=== PATIENT | female | born 1985 | race Caucasian/White ===

== ENCOUNTER → 2016-12-25 | Outpatient (CLI) | payer OTHER ==
[~2016-12-25] MED LIST: ACET-1311 PO; DULO60CA44 PO; GABA-112 PO; [UNRECOGNIZED DRUG - OTHER] PO; compound cream
== END | disposition home or self-care (01) ==
LOC: C.LABSPEC 17:05
PROVIDERS: ATTEND Nurse Practitioner Adult Health
DX: R31.29 Other microscopic hematuria (principal); N39.0 Urinary tract infection, site not specified

== ENCOUNTER 2017-09-03 15:09 | Inpatient (IN) | payer OTHER ==
[~2017-09-03] VITALS: Ht 165.1 cm; Wt 50.8 kg
[2017-09-03 15:56] LABS: BASO % 0.1 %; BASO ABS # 0.02 K/uL (0-0.2); EOS ABS # 0.16 K/uL (0-0.5); HEMATOCRIT 45.7 % (37-47); IG# 0.05 K/uL (0.00-0.02); LYMPH % 15.7 %; LYMPH ABS # 2.64 K/uL (1.2-3.4); MEAN CORPUSCULAR HEMOGLOBIN 31.5 pg (25-34); MEAN PLATELET VOLUME 8.6 fL (7.4-10.4); MONO ABS # 1.35 K/uL (0.11-0.59); NEUT % 74.9 %; NEUT ABS # 12.61 K/uL (1.4-6.5); PLATELET COUNT 219 K/uL (130-400); RED CELL DISTRIBUTION WIDTH CV 13.3 % (11.5-14.5); RED CELL DISTRIBUTION WIDTH SD 44.4 fL (36.4-46.3); WHITE BLOOD COUNT 16.83 K/uL (4.8-10.8)
[2017-09-03 16:17] LABS: ALBUMIN 4.3 gm/dl (3.4-5.0); CALCIUM 9.1 mg/dl (8.5-10.1); CREATININE 0.91 mg/dl (0.60-1.20); POTASSIUM 4.2 mmol/L (3.5-5.1)
[2017-09-03 16:20] LABS: TOTAL PROTEIN 7.6 gm/dl (6.4-8.2)
[2017-09-03] MEDS ORDERED: SODIUM CHLORIDE 0.9% 1000ML 1,000 ML IV STA (18:38)
[2017-09-03] MEDS ORDERED: MoRPHine SULFATE 4 MG/ML 1 ML CARP\\VIAL IV STA (18:38)
[2017-09-03] MEDS ORDERED: ONDANSETRON INJ 2 MG/ML 2 ML VIAL IV STA (18:38)
[2017-09-03] MEDS ORDERED: KETOROLAC TROMETHAMINE 30 MG/ML VIAL IV STA (18:38)
[2017-09-03] MEDS ORDERED: NRN800 PO (18:54)
[2017-09-03] MEDS ORDERED: VALA1TAB31 PO (18:54)
[2017-09-03] MEDS ORDERED: AMT25 PO (18:54)
[2017-09-03] MEDS ORDERED: BUPR100T5 PO (18:54)
[2017-09-03] MEDS ORDERED: CEFTRIAXONE SOD INJ 1 GM ADDVIAL IV STA (19:52)
--- NOTE | 2017-09-03 20:48 | DIAGNOSTIC IMAGING REPORT ---
CT SCAN OF THE ABDOMEN AND PELVIS WITHOUT IV CONTRAST CLINICAL HISTORY: Right flank pain. COMPARISON STUDY: Abdominal CT dated 04/10/2016. TECHNIQUE: CT scan of the abdomen and pelvis is performed from the lung bases to the proximal femora. Images are reviewed in the axial, sagittal, and coronal planes. IV contrast was not administered for this examination as per the referring clinician. A dose lowering technique was utilized adhering to the principles of ALARA. CT DOSE: 281.57 mGy.cm FINDINGS: Lung bases: The heart is normal in size and without pericardial effusion. The lung bases are clear. Liver: The unenhanced liver is normal in size, contour, and attenuation. There is no intrahepatic biliary ductal dilatation. Gallbladder: Unremarkable. Spleen: Normal in size and attenuation. Pancreas: Unremarkable. Adrenal glands: Unremarkable. Kidneys: The unenhanced kidneys are normal in size and without hydronephrosis. There are no renal calculi identified. There is no evidence of contour deforming renal mass lesion. Abdominal vasculature: The abdominal aorta is normal in course and caliber. Bowel: The small bowel and colon are normal in course and caliber. The appendix is not identified on this unenhanced examination. Peritoneum: There is no intraperitoneal free air or abdominal ascites. Lymphadenopathy: None. Pelvic viscera: The bladder, uterus, and adnexa are normal as visualized. There are bilateral ovarian follicles. Skeletal structures: No lytic or blastic lesions are seen. IMPRESSION: There are no acute infectious or inflammatory findings in the abdomen or pelvis. Electronically signed by: Blade Suarez M.D. 09/03/2017 8:46 PM Dictated Date/Time: 09/03/2017 8:39 PM
[2017-09-03] MEDS ORDERED: MAGNESIUM HYDROXIDE SUSP 30 ML UDC PO PRN (22:15)
[2017-09-03] MEDS ORDERED: POLYETHYLENE (MIRALAX) 17 GM PACK PO PRN (22:15)
[2017-09-03] MEDS ORDERED: ALUMINUM/MAGNESIUM/SIMETH (MAALOX MAX) 30 ML UDC PO PRN (22:15)
[2017-09-03 22:24] LABS: PTT PATIENT 29.2 SECONDS (21.0-31.0)
--- NOTE | 2017-09-03 22:34 | History and Physical ---
History & Physical Date & Time of Service: Sep 03, 2017 at 22:13 Chief Complaint: Pain Near Kidney Wrapped Waist Primary Care Physician: Gomez Pulido M.D. History of Present Illness Source: patient 31 year old female with a PMH of chronic interstitial cystitis, fibromyalgia and IBS is here with worsening R flank pain. She says her right flank pain has been ongoing for the past 3 weeks but over the past 3 days it has worsened. She describes it as a deep ache that radiates around her back to her suprapubic area. She rates the pain as a 10/10 in severity. Associated symptoms include chills, nausea/vomiting, decreased appetite, dysuria (chronic symptom), intermittent hematuria, and diarrhea. She has received 3 antibiotics over the past 3 weeks. The first two were obtained from her PCP. These included cipro and bactrim. She is unsure if cultures were obtained. Due to continued symptoms [facility]. A culture was not obtained during this visit. She notes she also recently had bacterial vaginosis and was treated with an antibiotic which she has finished. Her PCP is Dr. Pulido in [place]. She has followed with Dr. Wilson in the past for interstitial cystitis but has not seen him recently. She has an appointment with him on October 03. In the ED she was tachycardic but her other vitals were stable. Her labs were significant for a CBC of 16, and a +UA. Her CT did no show any acute findings. In the ED she received IV ceftriaxone, IV morphine, IV toradol and IV zofran. Due to her history of CIS and her ongoing symptoms it was decided to admit the patient for IV antibiotics Past Medical/Surgical History Medical Problems: (1) Chronic interstitial cystitis (2) Chronic interstitial cystitis (3) Diffuse abdominal pain (4) fibromyalgia (5) Flank pain (6) IRRITABLE BOWEL SYNDROME (7) ovarian cyst Surgical Problems: (1) H/O laparoscopy Family History FH: cancer FH: heart disease FH: hypertension Social History Smoking Status: Current Every Day Smoker Alcohol Use: none Drug Use: none Marital Status: single Housing status: lives with significant other Occupational Status: unemployed Allergies Coded Allergies: No Known Allergies (Unverified , 04/10/16) Home Medications Scheduled Amitriptyline HCl (Amitriptyline HCl), 25 MG PO HS Bupropion Hcl (Wellbutrin Sr), 1 TAB PO QAM Gabapentin (Gabapentin), 800 MG PO QID Valacyclovir Hcl (Valtrex), 1 GM PO DAILY Review of Systems Constitutional: + chills, + weight loss, + fatigue, No fever, No sweats Respiratory: + cough (chronic), No sputum, No shortness of breath, No hemoptysis Cardiovascular: + chest pain (chronic), No orthopnea, No edema, No palpitations Abdomen: + pain, + nausea, + vomiting, + diarrhea, No constipation, No GI bleeding Musculoskeletal: + joint pain (chronic), + muscle pain (chronic), No calf pain Genitourinary - Female: + dysuria, + urinary frequency, + hematuria, No urinary incontinence, No Endocrine: No fatigue, No excessive thirst Hematologic / Lymphatic: No abnormal bleeding/bruising, No clotting problems Physical Exam Vital Signs Date Time Temp Pulse Resp B/P (MAP) Pulse Ox O2 Delivery O2 Flow Rate FiO2 09/03/17 20:49 84 18 103/62 96 Room Air 09/03/17 19:03 96 18 118/80 99 Room Air 09/03/17 15:23 36.7 115 18 121/95 98 Room Air General Appearance: WD/WN, no apparent distress Eyes: normal inspection, PERRL ENT: hearing grossly normal, pharynx normal Neck: supple, no carotid bruits, trachea midline Respiratory/Chest: chest non-tender, no respiratory distress, no accessory muscle use, + pertinent finding (atelectasis) Cardiovascular: regular rate, rhythm, no edema, no murmur, normal peripheral pulses Abdomen/GI: normal bowel sounds, non tender, soft Back: + right CVA tenderness, + pertinent finding (scar on the left side of back from previous injury) Extremities/Musculoskelatal: normal inspection, no calf tenderness, no pedal edema, non-tender Neurologic/Psych: alert, normal mood/affect Skin: normal color, warm/dry, no rash Diagnostics Laboratory Results Results Past 24 Hours Test 09/03/17 15:30 09/03/17 18:20 09/03/17 22:10 Range/Units White Blood Count 16.83 4.8-10.8 K/uL Red Blood Count 5.08 4.2-5.4 M/uL Hemoglobin 16.0 12.0-16.0 g/dL Hematocrit 45.7 37-47 % Mean Corpuscular Volume 90.0 80-100 fL Mean Corpuscular Hemoglobin 31.5 25-34 pg Mean Corpuscular Hemoglobin Concent 35.0 32-36 g/dl Platelet Count 219 130-400 K/uL Mean Platelet Volume 8.6 7.4-10.4 fL Neutrophils (%) (Auto) 74.9 % Lymphocytes (%) (Auto) 15.7 % Monocytes (%) (Auto) 8.0 % Eosinophils (%) (Auto) 1.0 % Basophils (%) (Auto) 0.1 % Neutrophils # (Auto) 12.61 1.4-6.5 K/uL Lymphocytes # (Auto) 2.64 1.2-3.4 K/uL Monocytes # (Auto) 1.35 0.11-0.59 K/uL Eosinophils # (Auto) 0.16 0-0.5 K/uL Basophils # (Auto) 0.02 0-0.2 K/uL RDW Standard Deviation 44.4 36.4-46.3 fL RDW Coefficient of Variation 13.3 11.5-14.5 % Immature Granulocyte % (Auto) 0.3 % Immature Granulocyte # (Auto) 0.05 0.00-0.02 K/uL Sodium Level 139 136-145 mmol/L Potassium Level 4.2 3.5-5.1 mmol/L Chloride Level 105 98-107 mmol/L Carbon Dioxide Level 25 21-32 mmol/L Anion Gap 10.0 3-11 mmol/L Blood Urea Nitrogen 8 7-18 mg/dl Creatinine 0.91 0.60-1.20 mg/dl Est Creatinine Clear Calc Drug Dose 71.4 ml/min Estimated GFR () 97.4 Estimated GFR (Non- 84.1 BUN/Creatinine Ratio 8.5 10-20 Random Glucose 83 70-99 mg/dl Calcium Level 9.1 8.5-10.1 mg/dl Total Bilirubin 0.6 0.2-1 mg/dl Aspartate Amino Transf (AST/SGOT) 12 15-37 U/L Alanine Aminotransferase (ALT/SGPT) 11 12-78 U/L Alkaline Phosphatase 67 45-117 U/L Total Protein 7.6 6.4-8.2 gm/dl Albumin 4.3 3.4-5.0 gm/dl Globulin 3.3 2.5-4.0 gm/dl Albumin/Globulin Ratio 1.3 0.9-2 Urine Color DK YELLOW Urine Appearance CLOUDY CLEAR Urine pH 5.0 4.5-7.5 Urine Specific [place] 1.019 1.000-1.030 Urine Protein 1+ NEG Urine Glucose (UA) NEG NEG Urine Ketones NEG NEG Urine Occult Blood 1+ NEG Urine Nitrite POS NEG Urine Bilirubin NEG NEG Urine Urobilinogen NEG NEG Urine Leukocyte Esterase MODERATE NEG Urine WBC (Auto) >30 0-5 /hpf Urine RBC (Auto) 5-10 0-4 /hpf Urine Hyaline Casts (Auto) 5-10 0-5 /lpf Urine Epithelial Cells (Auto) >30 0-5 /lpf Urine Bacteria (Auto) 3+ NEG Urine Test NEG NEG Microbiology Results 09/03/17 Urine Culture, Received Pending Diagnostic Radiology IMPRESSION: There are no acute infectious or inflammatory findings in the abdomen or pelvis. Impression Assessment and Plan 31 year old female with a PMH of Chronic interstitial cystitis presented her with worsening R flank pain and has been clinically diagnosed with pyelonephritis. Flank pain secondary to Pyelonephritis - IV ceftriaxone 1 gram q24 - IV morphine 2 mg g6 hours prn - IV zofran prn - IV NS maintenance fluids - Urine culture pending - follow cbc and fever curve Fibromyalgia - continue gabapentin and amitryptiline IBS/ smoking addiction - continue wellbutrin DVT prophylaxis - lovenox 40mg q24 FULL CODE Resident Physician Supervision Note: I was present with Dr. Foss during the history and exam. I discussed the case with the resident and agree with the findings and plan as documented in the note. Any exceptions or clarifications are listed here: 31 y/o F Hx interstitial cystitis. Presents with flank pain - recent UTI which she treated with Bactrim and did not resolve. OE AAO x 3 S1,2 R CTAB Largely nontender abd / flank P: Pt placed on Ceftriaxone She is retained for pain management and IVF Documented By: Lino Collado Resuscitation Status VTE Prophylaxis Will order VTE Prophylaxis: Yes
[2017-09-03] MEDS: SODIUM CHLORIDE 0.9% 1000ML 1,000 ML IV SCH (23:38)
[2017-09-03] MEDS: MoRPHine SULFATE 2 MG/ML CARP IV PRN (23:39)
[2017-09-04 01:08] VITALS: BP 109/75; PULSE 91; TEMP 36.3; O2SAT 93; Ht 165.1 cm; Wt 50.8 kg
--- NOTE | 2017-09-04 02:24 | EMERGENCY ROOM VISIT NOTE ---
History First contact with patient: 18:16 Chief Complaint: FLANK PAIN Stated Complaint: FLANK PAIN History of Present Illness The patient is a 31 year old female who presents to the Emergency Room via private vehicle accompanied by male with complaints of "flank pain". The patient states that she has been experiencing intermittent right flank pain for quite some time. She has had numerous antibiotics in the past. She states that the worst pain (of which she presents with today) has been for the past 3 days. It radiates from the right flank to the right lower quadrant. She states that this is different than her typical flank pain that she receives with kidney stones. She notes that she finished Bactrim about 1 week ago without relief for a suspected UTI. She describes the pain as deep, and aching in nature. At times it feels stabbing. The pain is rated as a 10/10. She has a history of chronic interstitial cystitis of which she follows locally with Dr. Wilson. Review of Systems A complete 10-point Review of Systems was discussed with the patient, with pertinent positives and negatives listed in the History of Present Illness. All remaining Review of Systems questions can be considered negative unless otherwise specified. Past Medical/Surgical History Medical Problems: (1) Chronic interstitial cystitis (2) fibromyalgia (3) Flank pain (4) IRRITABLE BOWEL SYNDROME (5) ovarian cyst Surgical Problems: (1) H/O laparoscopy Family History FH: cancer FH: heart disease FH: hypertension Social History Smoking Status: Current Every Day Smoker Alcohol Use: none Drug Use: none Marital Status: single Housing Status: lives alone Occupation Status: unemployed Current/Historical Medications Scheduled Amitriptyline HCl (Amitriptyline HCl), 25 MG PO HS Bupropion Hcl (Wellbutrin Sr), 1 TAB PO QAM Gabapentin (Gabapentin), 800 MG PO QID Valacyclovir Hcl (Valtrex), 1 GM PO DAILY Physical Exam Vital Signs Date Time Temp Pulse Resp B/P (MAP) Pulse Ox O2 Delivery O2 Flow Rate FiO2 09/03/17 20:49 84 18 103/62 96 Room Air 09/03/17 19:03 96 18 118/80 99 Room Air 09/03/17 15:23 36.7 115 18 121/95 98 Room Air Physical Exam VITAL SIGNS - Vital signs and nursing notes were reviewed. Stable. Afebrile. There is tachycardia. GENERAL -31-year-old female appearing her stated age who is in no acute distress. Communicates well with provider and answers questions appropriately. SKIN - Without rashes. No meningeal or petechial rash. HEAD - NC/AT. EYES - PERRL with EOMI bilaterally. Sclera anicteric. EARS - No deformities of external structures noted on gross examination bilaterally. NOSE - Midline and without cyanosis. No epistaxis or purulent drainage noted. Septum midline without deviation or septal hematoma noted. MOUTH/OROPHARYNX - Without perioral cyanosis. NECK - Neck with FROM. Supple to palpation. LUNGS - Chest wall symmetric without accessory muscle use, intercostals retractions, or central cyanosis. Normal vesicular breath sounds CTA B/L. No wheezes, rales, or rhonchi appreciated. CARDIAC - RRR with S1/S2. No murmur, rubs, or gallops appreciated. ABDOMEN - Abdominal contour normal without pulsations or visible masses. BS normoactive all four quadrants. Right lower quadrant and right flank tenderness noted. No palpable masses, hepatosplenomegaly, or ascites noted. EXTREMITIES - No clubbing or peripheral cyanosis. No pretibial edema present. +5 /5 strength noted in UE/LE bilaterally. NEUROLOGIC - Cranial nerves II through XII grossly intact. Sensory intact to light touch throughout. PSYCH - A&O, and cooperates fully with examiner. Pt is very pleasant and interacts well with examiner. Medical Decision & Procedures ER Provider Diagnostic Interpretation: CT SCAN OF THE ABDOMEN AND PELVIS WITHOUT IV CONTRAST CLINICAL HISTORY: Right flank pain. COMPARISON STUDY: Abdominal CT dated 04/10/2016. TECHNIQUE: CT scan of the abdomen and pelvis is performed from the lung bases to the proximal femora. Images are reviewed in the axial, sagittal, and coronal planes. IV contrast was not administered for this examination as per the referring clinician. A dose lowering technique was utilized adhering to the principles of ALARA. CT DOSE: 281.57 mGy.cm FINDINGS: Lung bases: The heart is normal in size and without pericardial effusion. The lung bases are clear. Liver: The unenhanced liver is normal in size, contour, and attenuation. There is no intrahepatic biliary ductal dilatation. Gallbladder: Unremarkable. Spleen: Normal in size and attenuation. Pancreas: Unremarkable. Adrenal glands: Unremarkable. Kidneys: The unenhanced kidneys are normal in size and without hydronephrosis. There are no renal calculi identified. There is no evidence of contour deforming renal mass lesion. Abdominal vasculature: The abdominal aorta is normal in course and caliber. Bowel: The small bowel and colon are normal in course and caliber. The appendix is not identified on this unenhanced examination. Peritoneum: There is no intraperitoneal free air or abdominal ascites. Lymphadenopathy: None. Pelvic viscera: The bladder, uterus, and adnexa are normal as visualized. There are bilateral ovarian follicles. Skeletal structures: No lytic or blastic lesions are seen. IMPRESSION: There are no acute infectious or inflammatory findings in the abdomen or pelvis. Electronically signed by: Blade Suarez M.D. 09/03/2017 8:46 PM Dictated Date/Time: 09/03/2017 8:39 PM Laboratory Results 09/03/17 15:30 Red Blood Count 5.08, Mean Corpuscular Volume 90.0, Mean Corpuscular Hemoglobin 31.5, Mean Corpuscular Hemoglobin Concent 35.0, Mean Platelet Volume 8.6, Neutrophils (%) (Auto) 74.9, Lymphocytes (%) (Auto) 15.7, Monocytes (%) (Auto) 8.0, Eosinophils (%) (Auto) 1.0, Basophils (%) (Auto) 0.1, Neutrophils # (Auto) 12.61, Lymphocytes # (Auto) 2.64, Monocytes # (Auto) 1.35, Eosinophils # (Auto) 0.16, Basophils # (Auto) 0.02 09/03/17 15:30 Test 09/03/17 15:30 09/03/17 18:20 White Blood Count 16.83 K/uL (4.8-10.8) Red Blood Count 5.08 M/uL (4.2-5.4) Hemoglobin 16.0 g/dL (12.0-16.0) Hematocrit 45.7 % (37-47) Mean Corpuscular Volume 90.0 fL (80-100) Mean Corpuscular Hemoglobin 31.5 pg (25-34) Mean Corpuscular Hemoglobin Concent 35.0 g/dl (32-36) Platelet Count 219 K/uL (130-400) Mean Platelet Volume 8.6 fL (7.4-10.4) Neutrophils (%) (Auto) 74.9 % Lymphocytes (%) (Auto) 15.7 % Monocytes (%) (Auto) 8.0 % Eosinophils (%) (Auto) 1.0 % Basophils (%) (Auto) 0.1 % Neutrophils # (Auto) 12.61 K/uL (1.4-6.5) Lymphocytes # (Auto) 2.64 K/uL (1.2-3.4) Monocytes # (Auto) 1.35 K/uL (0.11-0.59) Eosinophils # (Auto) 0.16 K/uL (0-0.5) Basophils # (Auto) 0.02 K/uL (0-0.2) RDW Standard Deviation 44.4 fL (36.4-46.3) RDW Coefficient of Variation 13.3 % (11.5-14.5) Immature Granulocyte % (Auto) 0.3 % Immature Granulocyte # (Auto) 0.05 K/uL (0.00-0.02) Prothrombin Time 10.0 SECONDS (9.0-12.0) Prothromb Time International Ratio 1.0 (0.9-1.1) Activated Partial Thromboplast Time 29.2 SECONDS (21.0-31.0) Partial Thromboplastin Ratio 1.1 Anion Gap 10.0 mmol/L (3-11) Est Creatinine Clear Calc Drug Dose 71.4 ml/min Estimated GFR () 97.4 Estimated GFR (Non- 84.1 BUN/Creatinine Ratio 8.5 (10-20) Calcium Level 9.1 mg/dl (8.5-10.1) Total Bilirubin 0.6 mg/dl (0.2-1) Aspartate Amino Transf (AST/SGOT) 12 U/L (15-37) Alanine Aminotransferase (ALT/SGPT) 11 U/L (12-78) Alkaline Phosphatase 67 U/L (45-117) Total Protein 7.6 gm/dl (6.4-8.2) Albumin 4.3 gm/dl (3.4-5.0) Globulin 3.3 gm/dl (2.5-4.0) Albumin/Globulin Ratio 1.3 (0.9-2) Urine Color DK YELLOW Urine Appearance CLOUDY (CLEAR) Urine pH 5.0 (4.5-7.5) Urine Specific [place] 1.019 (1.000-1.030) Urine Protein 1+ (NEG) Urine Glucose (UA) NEG (NEG) Urine Ketones NEG (NEG) Urine Occult Blood 1+ (NEG) Urine Nitrite POS (NEG) Urine Bilirubin NEG (NEG) Urine Urobilinogen NEG (NEG) Urine Leukocyte Esterase MODERATE (NEG) Urine WBC (Auto) >30 /hpf (0-5) Urine RBC (Auto) 5-10 /hpf (0-4) Urine Hyaline Casts (Auto) 5-10 /lpf (0-5) Urine Epithelial Cells (Auto) >30 /lpf (0-5) Urine Bacteria (Auto) 3+ (NEG) Urine Test NEG (NEG) Medications Administered Medications (Trade) Dose Ordered Sig/Myesha Route Start Time Stop Time Status Last Admin Dose Admin Sodium Chloride 1,000 ml @ 999 mls/hr Q1H1M STAT IV 09/03/17 18:38 09/03/17 19:38 DC 09/03/17 19:02 999 MLS/HR Morphine Sulfate (MoRPHine SULFATE INJ) 4 mg NOW STAT IV 09/03/17 18:38 09/03/17 18:41 DC 09/03/17 19:02 4 MG Ketorolac Tromethamine (Toradol Inj) 30 mg NOW STAT IV 09/03/17 18:38 09/03/17 18:41 DC 09/03/17 19:01 30 MG Ondansetron HCl (Zofran Inj) 4 mg NOW STAT IV 09/03/17 18:38 09/03/17 18:41 DC 09/03/17 19:02 4 MG Ceftriaxone Sodium (Rocephin Inj) 1 gm NOW STAT IV 09/03/17 19:52 09/03/17 19:53 DC 09/03/17 20:09 1 GM Medical Decision Patient was seen and evaluated as above in room C1. She presents with right flank pain and right lower quadrant abdominal tenderness. She has a history of interstitial cystitis. Review was performed of nursing notes and vital signs. After obtaining a thorough history and physical examination the above work up was performed. She appears to be in pain on exam. There is leukocytosis noted. UTI indicated on urinalysis. CT scan without contrast was obtained of the abdomen and pelvis to evaluate for stone. This was negative for any acute process. I suspect clinically she has pyelonephritis. She is tachycardic, and was recently on a course of Bactrim with persistence of her symptoms and I believe that further evaluation and intravenous antibiotics in the inpatient setting is warranted. While here she was given fluids, Toradol, Zofran, morphine and Rocephin. I discussed this with the hospitalist and she will be admitted for further evaluation and management. Case was discussed with the attending physician. In the evaluation and treatment of this patient the following differential diagnoses were entertained: Pyelonephritis, renal calculi, interstitial cystitis , appendicitis, among others. Impression Primary Impression: Pyelonephritis Additional Impression: Right flank pain Departure Information Dispostion Admitted as an inpatient Condition FAIR Referrals Gomez Pulido M.D. (PCP) Forms HOME CARE DOCUMENTATION FORM, IMPORTANT VISIT INFORMATION Patient Instructions My [facility] Problem Qualifiers
[2017-09-04] MEDS: ONDANSETRON INJ 2 MG/ML 2 ML VIAL IV PRN ×2 (03:30→10:37)
[2017-09-04] MEDS: ACETAMINOPHEN 325 MG TAB PO PRN ×3 (03:31→15:59)
[2017-09-04 04:48] LABS: BASO % 0.2 %; BASO ABS # 0.02 K/uL (0-0.2); EOS % 0.2 %; EOS ABS # 0.03 K/uL (0-0.5); HEMOGLOBIN 12.7 g/dL (12.0-16.0); IG# 0.03 K/uL (0.00-0.02); LYMPH % 11.4 %; LYMPH ABS # 1.43 K/uL (1.2-3.4); MEAN CELL VOLUME 90.3 fL (80-100); MEAN CORPUSCULAR HEMOGLOBIN 30.2 pg (25-34); MEAN CORPUSCULAR HGB CONC 33.4 g/dl (32-36); MEAN PLATELET VOLUME 8.8 fL (7.4-10.4); MONO % 10.7 %; MONO ABS # 1.34 K/uL (0.11-0.59); NEUT % 77.3 %; NEUT ABS # 9.65 K/uL (1.4-6.5); PLATELET COUNT 180 K/uL (130-400); RED CELL DISTRIBUTION WIDTH CV 13.4 % (11.5-14.5); RED CELL DISTRIBUTION WIDTH SD 44.9 fL (36.4-46.3)
[2017-09-04 05:14] LABS: ALBUMIN 3.1 gm/dl (3.4-5.0); CALCIUM 7.8 mg/dl (8.5-10.1); CREATININE 0.84 mg/dl (0.60-1.20); POTASSIUM 3.8 mmol/L (3.5-5.1)
[2017-09-04 07:50] VITALS: BP 107/66; PULSE 104; TEMP 37.4; O2SAT 97
[2017-09-04] MEDS: MoRPHine SULFATE 2 MG/ML CARP IV PRN ×3 (08:17→20:36)
[2017-09-04] MEDS: GABAPENTIN 800 MG TAB PO SCH ×4 (08:21→20:26)
[2017-09-04] MEDS ORDERED: ENOXAPARIN 40 MG/0.4 ML SYR SQ SCH (09:00)
[2017-09-04] MEDS: SODIUM CHLORIDE 0.9% 1000ML 1,000 ML IV SCH ×2 (12:18→22:39)
[2017-09-04] MEDS: KETOROLAC TROMETHAMINE 30 MG/ML VIAL IV PRN ×2 (12:28→19:04)
[2017-09-04 15:57] VITALS: BP 94/60; PULSE 104; TEMP 36.8; O2SAT 97
--- NOTE | 2017-09-04 19:28 | Family Medicine Progress Note ---
Progress Note Date of Service Sep 04, 2017. Subjective Pt evaluation today including: conversation w/ patient, physical exam, chart review Pain: Severe, but rated at 4/10 PO Intake: Minimal, but keeping down liquids and some food Voiding: no voiding problems Patient in moderate amount of distress this morning. Writhing in pain, complains of headache and no change in flank/suprapubic pain from last night. Constitutional: + fever, + chills Abdomen: + pain, + nausea Female : + dysuria, + hematuria All Other Systems: Reviewed and Negative Medications Current Inpatient Medications Medications (Trade) Dose Ordered Sig/Myesha Route Start Time Stop Time Status Last Admin Dose Admin Acetaminophen (Tylenol Tab) 650 mg Q4H PRN PO 09/03/17 22:15 10/03/17 22:14 09/04/17 15:59 650 MG Al Hydrox/Mg Hydrox/Simethicone (Maalox Max Susp) 15 ml Q4H PRN PO 09/03/17 22:15 10/03/17 22:14 Magnesium Hydroxide (Milk Of Magnesia Susp) 30 ml Q6H PRN PO 09/03/17 22:15 10/03/17 22:14 Polyethylene (Miralax Powder Packet) 17 gm DAILY PRN PO 09/03/17 22:15 10/03/17 22:14 Ondansetron HCl (Zofran Inj) 4 mg Q6H PRN IV 09/03/17 22:15 10/03/17 22:14 09/04/17 10:37 4 MG Sodium Chloride 1,000 ml @ 90 mls/hr Q11H7M IV 09/03/17 22:15 10/03/17 22:14 09/04/17 12:18 90 MLS/HR Ceftriaxone Sodium 1 gm/ Dextrose 50 ml @ 100 mls/hr Q24H IV 09/04/17 20:00 09/14/17 19:59 Amitriptyline HCl (Elavil Tab) 25 mg HS PO 09/04/17 21:00 10/04/17 20:59 Gabapentin (Neurontin Tab) 800 mg QID PO 09/04/17 08:00 10/04/17 08:59 09/04/17 17:51 800 MG Miscellaneous Information (Order Awaiting Action) 1 ea QS N/A 09/03/17 22:45 10/03/17 22:44 Morphine Sulfate (MoRPHine SULFATE INJ) 1 mg Q6 PRN IV 09/04/17 11:15 09/17/17 22:14 09/04/17 14:45 1 MG Ketorolac Tromethamine (Toradol Inj) 30 mg Q6H PRN IV 09/04/17 11:15 09/09/17 11:14 09/04/17 19:04 30 MG Objective Vital Signs Date Time Temp Pulse Resp B/P (MAP) Pulse Ox O2 Delivery O2 Flow Rate FiO2 09/04/17 16:00 Room Air 09/04/17 15:57 36.8 104 16 94/60 (71) 97 Room Air 09/04/17 08:00 Room Air 09/04/17 07:50 37.4 104 18 107/66 (80) 97 Room Air 09/04/17 01:08 36.3 91 18 109/75 93 Room Air 09/03/17 20:49 84 18 103/62 96 Room Air Physical Exam General Appearance: WD/WN, no apparent distress Eyes: EOMI ENT: hearing grossly normal Respiratory/Chest: lungs clear, normal breath sounds, no respiratory distress Cardiovascular: no edema, no gallop, no JVD, no murmur, + tachycardia Abdomen: soft, + guarding, + tenderness (R flank, suprapubic, R groin) Extremities: normal inspection, no pedal edema, no calf tenderness 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, no motor/sensory deficits, alert, oriented x 3 Skin: normal color, warm/dry Laboratory Results Last Resulted 09/04/17 04:04 Red Blood Count 4.21, Mean Corpuscular Volume 90.3, Mean Corpuscular Hemoglobin 30.2, Mean Corpuscular Hemoglobin Concent 33.4, Mean Platelet Volume 8.8, Neutrophils (%) (Auto) 77.3, Lymphocytes (%) (Auto) 11.4, Monocytes (%) (Auto) 10.7, Eosinophils (%) (Auto) 0.2, Basophils (%) (Auto) 0.2, Neutrophils # (Auto ) 9.65, Lymphocytes # (Auto) 1.43, Monocytes # (Auto) 1.34, Eosinophils # (Auto ) 0.03, Basophils # (Auto) 0.02 Last Resulted 09/04/17 04:04 Assessment and Plan 31 year old female with a PMH of Chronic interstitial cystitis, fibromyalgia, IBS presents with worsening R flank pain x 3 days on top of 3 weeks of pain and dysuria. Has been clinically diagnosed with pyelonephritis after failed outpatient treatment with cipro/macrobid/bactrim. Flank pain secondary to Pyelonephritis - IV ceftriaxone 1 gram q24, day 2 - IV morphine 1 mg q6 hours prn and toradol 30 q6 prn - IV zofran prn - IV NS maintenance fluids 90 ml/hr - Urine culture growing GNB - follow cbc and fever curve Fibromyalgia - continue gabapentin and amitryptiline IBS/ tobacco abuse - continue wellbutrin DVTP: lovenox 40mg q24 Code: FULL Dispo: med/surg Resident Tracking Resident Involvement: Resident Care Provided Care Provided: Adult Hospital Medicine Reviewed: Pt Seen/Exam by Me History right flank tenderness+ Constitutional: denies: fever Respiratory: negative: short of breath Cardiovascular: denies chest pain General Appearance: mild distress Respiratory: lungs clear, no respiratory distress Cardiovascular: regular rate, rhythm Gastrointestinal: other (right flank tenderness +) Neurologic/Psychiatric: alert, oriented x 3 Skin Characteristics: warm/dry Assessment/Plan Resident Physician Supervision Note: I independently interviewed and examined the patient and verified the hawley history and physical, reviewed labs and image studies, discussed the case with the resident Dr. Cowan and agree with the findings and care plan.
[2017-09-04] MEDS ORDERED: CEFTRIAXONE SOD INJ 1 GM in DEXTROSE 5% ADD-VANTAGE 50ML 50 ML IV SCH (20:00)
[2017-09-04] MEDS ORDERED: AMITRIPTYLINE HCL 25 MG TAB PO SCH (21:00)
[2017-09-04 23:31] VITALS: BP 96/60; PULSE 89; TEMP 36.7; O2SAT 99
[2017-09-05] MEDS: ONDANSETRON INJ 2 MG/ML 2 ML VIAL IV PRN (02:39)
[2017-09-05] MEDS: KETOROLAC TROMETHAMINE 30 MG/ML VIAL IV PRN ×2 (02:39→12:51)
[2017-09-05 06:53] LABS: HEMATOCRIT 34.4 % (37-47); HEMOGLOBIN 11.5 g/dL (12.0-16.0); MEAN CELL VOLUME 90.1 fL (80-100); MEAN CORPUSCULAR HEMOGLOBIN 30.1 pg (25-34); MEAN CORPUSCULAR HGB CONC 33.4 g/dl (32-36); MEAN PLATELET VOLUME 8.6 fL (7.4-10.4); PLATELET COUNT 151 K/uL (130-400); RED CELL DISTRIBUTION WIDTH CV 13.4 % (11.5-14.5); RED CELL DISTRIBUTION WIDTH SD 44.7 fL (36.4-46.3); WHITE BLOOD COUNT 15.37 K/uL (4.8-10.8)
[2017-09-05 07:26] VITALS: BP 106/72; PULSE 83; TEMP 37; O2SAT 99
[2017-09-05] MEDS: MoRPHine SULFATE 2 MG/ML CARP IV PRN (07:45)
[2017-09-05] MEDS: GABAPENTIN 800 MG TAB PO SCH ×2 (07:49→12:50)
[2017-09-05] MEDS: SODIUM CHLORIDE 0.9% 1000ML 1,000 ML IV SCH (09:37)
[2017-09-05 12:59] LABS: BASO % 0.1 %; BASO ABS # 0.02 K/uL (0-0.2); EOS % 0.6 %; EOS ABS # 0.08 K/uL (0-0.5); HEMATOCRIT 33.8 % (37-47); HEMOGLOBIN 11.1 g/dL (12.0-16.0); IG# 0.03 K/uL (0.00-0.02); LYMPH % 20.3 %; MEAN CELL VOLUME 90.6 fL (80-100); MEAN CORPUSCULAR HEMOGLOBIN 29.8 pg (25-34); MEAN CORPUSCULAR HGB CONC 32.8 g/dl (32-36); MEAN PLATELET VOLUME 8.3 fL (7.4-10.4); MONO % 11.2 %; MONO ABS # 1.54 K/uL (0.11-0.59); NEUT % 67.6 %; NEUT ABS # 9.33 K/uL (1.4-6.5); PLATELET COUNT 142 K/uL (130-400); RED CELL DISTRIBUTION WIDTH CV 13.6 % (11.5-14.5); RED CELL DISTRIBUTION WIDTH SD 45.6 fL (36.4-46.3)
--- NOTE | 2017-09-05 14:00 | Discharge Instructions ---
Discharge Instructions Date of Service Sep 05, 2017. Admission Reason for Admission: Flank Pain Discharge Discharge Diagnosis / Problem: Pyelonephritis Discharge Goals Goal(s): Decrease discomfort, Improve disease control Activity Recommendations Activity Limitations: resume your previous activity . Instructions / Follow-Up Instructions / Follow-Up You were diagnosed with pyelonephritis (a kidney infection) based on examination and positive urine culture showing bacteria (E. coli). You were treated with IV antibiotics and will now be transitioned to oral. Please follow up with your primary care physician within the next week. Current Hospital Diet Patient's current hospital diet: Regular Diet Discharge Diet Recommended Diet: Regular Diet Pending Studies Studies pending at discharge: no Medical Emergencies . Who to Call and When: Medical Emergencies: If at any time you feel your situation is an emergency, please call 911 immediately. . Non-Emergent Contact Non-Emergency issues call your: Primary Care Provider . . "Provider Documentation" section prepared by John Hoyos. .
[2017-09-05] MEDS ORDERED: CEFD1CAP14 PO (14:02)
[2017-09-05 14:10] VITALS: BP 106/72; PULSE 83; TEMP 37; O2SAT 99
[2017-09-05] MEDS ORDERED: CEFDINIR 300 MG CAP PO ONE (14:15)
[2017-09-05] MEDS ORDERED: TRAM-10 PO (14:39)
--- NOTE | 2017-09-05 20:32 | Discharge Summary ---
Discharge Summary Date of Service Sep 05, 2017. Discharge Summary Admission Date: Sep 03, 2017 at 22:07 Discharge Date: Sep 05, 2017 Discharge Disposition: Home Principal Diagnosis: Pyelonephritis Problems/Secondary Diagnoses: Fibromyalgia, IBS, Chronic Interstitial Cystitis Medication Reconciliation New Medications: Cefdinir (Omnicef) 300 Mg Cap 300 MG PO Q12H for 12 Days, #24 CAP Tramadol (Ultram) 50 Mg Tab 50 MG PO Q8H PRN for Pain for 2 Days, #5 TAB Continued Medications: Amitriptyline HCl (Amitriptyline HCl) 25 Mg Tab 25 MG PO HS Bupropion Hcl (Wellbutrin Sr) Unknown Strength Tab 1 TAB PO QAM, TAB Gabapentin (Gabapentin) 800 Mg Tab 800 MG PO QID Valacyclovir Hcl (Valtrex) 1 Gm Tab 1 GM PO DAILY Discharge Exam Review of Systems: Constitutional: No fever, No chills Abdomen: + pain (r flank and suprapubic) Physical Exam: General Appearance: WD/WN, no apparent distress ENT: hearing grossly normal Respiratory/Chest: lungs clear Cardiovascular: regular rate, rhythm Abdomen / GI: soft, + tenderness (R flank and suprapubic TTP) 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 Clinically diagnosed with pyelonephritis after failed outpatient treatment with cipro/macrobid/bactrim. Flank pain secondary to Pyelonephritis - Received 3 days of IV Ceftriaxone, toradol and morphine for pian. - Urine culture grew e. coli - WBC improved, patient improved clinically - Discharged on cefdinir 300 mg BID x 12 days and #5 tab of tramadol 50 mg q6h for pain prn Fibromyalgia - continue gabapentin and amitryptiline IBS/ tobacco abuse - continue wellbutrin Total Time Spent: Greater than 30 minutes This includes examination of the patient, discharge planning, medication reconciliation, and communication with other providers. Discharge Instructions Please refer to the electronic Patient Visit Report (Discharge Instructions) for additional information. Additional Copies To Gomez Pulido M.D. Resident Tracking Resident Involvement: Resident Care Provided Care Provided: Adult [facility] Medicine Reviewed: Pt Seen/Exam by Me History flank pain much improved. still has some pain though feeling better overall. Constitutional: denies: fever Respiratory: negative: short of breath Cardiovascular: denies chest pain General Appearance: no apparent distress Respiratory: lungs clear, no respiratory distress Cardiovascular: regular rate, rhythm Gastrointestinal: soft, other (CVA tenderness improved) Neurologic/Psychiatric: alert, oriented x 3 Assessment/Plan Resident Physician Supervision Note: I independently interviewed and examined the patient and verified the hawley history and physical, reviewed labs and image studies, discussed the case with the resident Dr. Cowan and agree with the findings and care plan. Time spent in discharge 35 min
== END 2017-09-05 16:15 | disposition home or self-care (01) | DRG 690 ==
LOC: C.EDB 15:11 → C.MS4W 22:07 → EDBEDREQSVC 22:09 → ENRESERV 22:13
PROVIDERS: ADMIT Internal Medicine; ATTEND Family Medicine
DX: N12 Tubulo-interstitial nephritis, not specified as acute or chronic (principal); N30.10 Interstitial cystitis (chronic) without hematuria; M79.7 Fibromyalgia; K58.9 Irritable bowel syndrome, unspecified; F17.200 Nicotine dependence, unspecified, uncomplicated; Z79.899 Other long term (current) drug therapy